=== PATIENT | male | born 1945 | race Caucasian/White ===

== ENCOUNTER 2023-12-18 10:18 | Day surgery (SDC) | payer MEDICARE, SELFPAY ==
[2023-12-18] VITALS (14 sets, daily range): BP systolic 91–114; BP diastolic 60–87; BMI 30.6
[2023-12-18 10:36] LABS: Hematocrit 37.4 % (39.0-52.0); Hemoglobin 12.8 g/dL (13.0-18.0); Mean Corp Hgb Conc. 34.2 g/dL (33.0-37.0); Mean Corpuscular Hgb 29.3 pg (27.0-31.0); Mean Corpuscular Volume 85.6 fL (80.0-94.0); Mean Platelet Volume 9.3 fL (7.4-10.4); Platelet Count 225 10^3/uL (130-400); Red Blood Cell Count 4.37 10^6/uL (4.70-6.10); Red Cell Dist. Width 14.7 % (11.5-14.5); White Blood Cell Count 8.1 10^3/uL (4.8-10.8)
[2023-12-18 11:48] LABS: Glucose - Point of Care 141 mg/dl (70-99)
--- NOTE | 2023-12-18 15:33 | CM ---
Chart reviewed. Patient is independent of ADLS, lives alone in a 1st floor apartment, 10 ERIC around the one side and ramp around the back side, 0 DME. Patient is not current with VN, but has used [facility] in the past. Patient is interested in [facility].
Referral sent. Plan is for the patient to return home with VN. CM to follow
--- NOTE | 2023-12-18 16:30 | ITS.CL.PACE ---
Sawmill Worker - Pacemaker Implant
Pacemaker Implant
Procedure Report:
LEADLESS PACEMAKER IMPLANTATION
DATE: December 10, 2023
Primary Care Provider: Dr. Elena Valiente
Primary small products ii assembler: Dr. Ishmael Bobo
INDICATION:
Nonreversible symptomatic bradycardia due to symptomatic bradycardia-tachycardia syndrome with permanent atrial fibrillation and very difficult heart rates to control with medical therapy. Pacemaker implantation followed by AV noble ablation has
been requested.
service car operator: Dr Daniel Walters
PROCEDURE:
Sedation provided via the anesthesia department.
Femoral intravenous access is obtained. Right femoral venous access initially with an 8 Martiniquais sheath progressively dilated upwards to allow placement of the Medtronic Micra 27 Martiniquais introducer venous sheath.
The Medtronic Micra delivery system (deflectable catheter with Micra device) was then introduced via the introducer/sheath into the RA. The sheath was then withdrawn to the level of the IVC. Using multiple fluoroscopic views, the delivery system was
then guided across the TV into the RV. A mid septal location was targeted. Angiogram in both SALAS (SALAS space sign present) and CORTEZ view confirmed septal location and the device was deployed. Testing demonstrated adequate and stable parameters. Pull
and hold test was successful and repeat testing demonstrated stable parameters. The tether was removed and repeat testing demonstrated stable parameters. The introducer / sheath were removed.
Figure of 8 stitch was used to close the venous access sites.
DEVICE:
Medtronic MICRA VR system [id number], SN: [id number]
Capture threshold: 0.88 V @0.4 ms
R wave sensing 5 mV
Pacing impedance: 670 ohms
Isaac pacing mode: VVIR 60 - 130 ppm
COMPLICATIONS: None
SUMMARY / RECOMMENDATIONS:
Implantation of leadless pacing system
If he demonstrates stable normal function of his newly placed pacemaker, he will return for AV noble ablation
[2023-12-18 18:23] LABS: Glucose - Point of Care 222 mg/dl (70-99)
[2023-12-18] MEDS: BUMEX 0.5 MG PO (19:08)
[2023-12-18] MEDS: NOVOLOG FLEXPEN-MODERATE RESISTANCE 3 UNITS SC (19:09)
[2023-12-18] MEDS: LIPITOR 20 MG PO (19:14)
[2023-12-18] MEDS: TOPROL XL 12.5 MG PO (20:09)
[2023-12-18 21:36] LABS: Glucose - Point of Care 438 mg/dl (70-99)
[2023-12-18 21:36] LABS: Glucose - Point of Care 456 mg/dl (70-99)
[2023-12-18 22:22] LABS: Glucose 425 mg/dl (70-99)
[2023-12-18] MEDS: NOVOLOG FLEXPEN 11 UNITS SC (22:54)
[2023-12-18] MEDS: DESYREL 100 MG PO (23:00)
[2023-12-19 00:58] LABS: Glucose - Point of Care 286 mg/dl (70-99)
--- NOTE | 2023-12-19 01:36 | PTCARENOTE ---
Pt. remains Afib on the monitor, rate low 100's-120's (Toprol given) other VSS. Bedrest ended at beginning of shift, pt. has since been OOB frequently to use BR and sit in chair. Right groin site intact with small amount old drainage (no new
growth), no S&S hematoma, pedal pulses palpable. No complaints chest pain/discomfort. HS blood sugar 456 by accucheck with venous result of 425 (asymptomatic). CHRISTIAN Mora, notified, order for Novalog 11 units x 1 obtained and
administered, 2 hour recheck 286. Pt. currently sleeping.
[2023-12-19 03:28] VITALS: BP 110/86
[2023-12-19 04:08] LABS: Hematocrit 36.6 % (39.0-52.0); Hemoglobin 12.2 g/dL (13.0-18.0); Mean Corp Hgb Conc. 33.3 g/dL (33.0-37.0); Mean Corpuscular Hgb 28.8 pg (27.0-31.0); Mean Corpuscular Volume 86.3 fL (80.0-94.0); Mean Platelet Volume 9.5 fL (7.4-10.4); Platelet Count 215 10^3/uL (130-400); Red Blood Cell Count 4.24 10^6/uL (4.70-6.10); Red Cell Dist. Width 14.7 % (11.5-14.5); White Blood Cell Count 6.7 10^3/uL (4.8-10.8)
[2023-12-19 04:23] VITALS: BMI 31.3
[2023-12-19 04:29] LABS: Blood Urea Nitrogen 43 mg/dl (9-20); Calcium 9.5 mg/dl (8.4-10.2); Carbon Dioxide 27 mmol/L (22-30); Chloride 95 mmol/L (98-107); Estimated Creatinine Clearance 54 ml/min; Glucose 201 mg/dl (70-99); Magnesium 2.1 mg/dl (1.6-2.3); Sodium 133 mmol/L (135-145); eGFR > 60.00
[2023-12-19 07:29] VITALS: BP 116/100
[2023-12-19 07:30] VITALS: BP 115/81
[2023-12-19 08:03] LABS: Glucose - Point of Care 171 mg/dl (70-99)
[2023-12-19] MEDS: NOVOLOG FLEXPEN-MODERATE RESISTANCE 1 UNITS SC (08:03)
[2023-12-19] MEDS: TOPROL XL 25 MG PO (08:08)
[2023-12-19] MEDS: GLUCOTROL 5 MG PO (08:08)
[2023-12-19] MEDS: PROTONIX 40 MG PO (08:08)
[2023-12-19 08:19] LABS: Glycohemoglobin (HgbA1c) 9.5 % (4.0-5.6)
--- NOTE | 2023-12-19 08:56 | W.PN.CARDCBS ---
Addendum entered and electronically signed by Landen Treadwell DO 12/19/23 12:03:
I saw and examined the patient.
The Anvil Worker's note was reviewed and I agree with the note.
Comment:
Patient seen and examined; no acute events; resting comfortably. No cp, sob, palpitations, lh, dizziness, groin pain, or weakness.
NAD<AOx3
S1, S2, irreg irreg, no m/r/g
CTAB, non labored
SNTND bsx4
R fem site c/d/i no HT, soft
BL LE no edema, warm
Persistent (likely permanent) AF s/p micra leadless symptomatic bradycardia, tachybrady syndrome
Increase BB as tolerated (25 mg BID Toprol XL, improved HR)
DC instructions and follow-up provided
Stable for DC
Original Note:
Today's Communication / Plan
-
Titrate metoprolol, monitor HR
home this afternoon
Impression / Plan
-
PCP: Elena Valiente DO
CDY: Ishmael Bobo MD
Impression:
Persistent Afib
Prior PVI 01/24/22
SERGO thrombus 11/13 and 12/11
post 24mm SERGO Watchman device insertion 10/01/22
Ambulatory dysfunction
HTN
HLD
DM2
Chronic diastolic HFpEF
COPD/Emphysema
Peripheral neuropathy
GERD
Former smoker
Plan:
post MICRA leadless pacemaker implant 12/18/23
groin stable
tele Afib with RVR HR 100-130's
f/u Echo no effusion
Will titrate metoprolol xl to 25mg bid, may need higher doses
Plan for return for AVN ablation in December
Activity restrictions reviewed
f/u dca 2-4 weeks
continue cardiac care with Dr. Bobo
home today if HR improved with increased BB
Progress Note - Cutting Inspector
Subjective
Date of Service: December 19, 2023
no cp, sob
Objective
Labs:
12/19/23 03:50
12/19/23 03:50
Labs
Hgb 12.2 g/dL (13.0-18.0) L 12/19/23 03:50
Hct 36.6 % (39.0-52.0) L 12/19/23 03:50
Plt Count 215 10^3/uL (130-400) 12/19/23 03:50
Sodium 133 mmol/L (135-145) L 12/19/23 03:50
Potassium 4.0 mmol/L (3.5-5.1) 12/19/23 03:50
BUN 43 mg/dl (9-20) H 12/19/23 03:50
Creatinine 1.2 mg/dL (0.7-1.3) 12/19/23 03:50
Glucose 201 mg/dl (70-99) H 12/19/23 03:50
Vital Signs and I&O:
Vital Signs
Temp Pulse Resp BP Pulse Ox
98.4 F 119 18 115/81 94
12/19/23 07:01 12/19/23 07:30 12/19/23 07:01 12/19/23 07:30 12/19/23 07:01
Vital Signs
Temp Pulse Resp BP Pulse Ox
98.4 F 119 18 115/81 94
12/19/23 07:01 12/19/23 07:30 12/19/23 07:01 12/19/23 07:30 12/19/23 07:01
Intake & Output
12/17/23 12/18/23 12/19/23 12/20/23
06:59 06:59 06:59 06:59
Intake Total 480 / 480
Balance 480 / 480
Physical Exam
Physical Exam
NAD<AOx3
S1, S2, irreg irreg
CTAB, non labored
SNTND bsx4
R fem site c/d/i no HT, soft
[2023-12-19] MEDS: BUMEX 0.5 MG PO (09:00)
--- NOTE | 2023-12-19 09:36 | PTCARENOTE ---
Assumed care of pt from night RN. Pt received awake and alert, Ox3. VSs, CM shows AF 100's, POX 96% on RA. Right groin dsg remains CDI with good CMS throughout limb. He denies any pain or discomfort. For possible D/C today.
--- NOTE | 2023-12-19 10:29 | CM ---
Chart reviewed. Patient is independent of ADLS, lives alone in a 1 STH, 10 ERCI through the front and a ramp in the back. Referral sent and accepted to [facility]. Plan is for the patient to return home with [facility].
[2023-12-19 11:09] VITALS: BP 106/77
--- NOTE | 2023-12-19 12:07 | W.DS.TRANS ---
DC Summary - Ordained Minister
-
Discharge Instructions:
Sleep Apnea Risk Intermediate
Discharge Diagnosis/Procedures MICRA Pacemaker placement
Diet Low Cholesterol,Diabetic, Carb Controlled
Driving Restrictions No driving for 24 hours
Instructions:
Stand-Alone Forms: DC Instructions- Cath/EP Lab
Changes to Home Medications: Yes
Discharge Medications:
DC Medications w/original date entered in [facility]
atorvastatin 20 mg tablet 20 mg PO DAILY High cholesterol 11/22/21
bumetanide 0.5 mg tablet 0.5 mg PO BID Fluid retention/Swelling 11/22/21
cholecalciferol (vitamin D3) 50 mcg (2,000 unit) tablet 2,000 units PO DAILY Supplement 11/22/21
dulaglutide 0.75 mg/0.5 mL subcutaneous pen injector (Trulicity) 0.75 mg SC WE Diabetes 11/22/21
folic acid 1 mg tablet 1 mg PO DAILY Supplement 11/22/21
glipizide 5 mg tablet 5 mg PO DAILY Diabetes 11/22/21
montelukast 10 mg tablet 10 mg PO HS ASTHMA 11/22/21
metolazone 2.5 mg tablet 2.5 mg PO DAILY 12/18/23
omeprazole 40 mg capsule,delayed release 40 mg PO DAILY 12/18/23
trazodone 100 mg tablet 100 mg PO HS 12/18/23
metoprolol succinate 25 mg tablet,extended release 24 hr 25 mg PO BID #60 tabs 12/19/23
Home Medication Changes
increased metoprolol to 25mg bid
Pending Results: No
[2023-12-19 12:12] LABS: Glucose - Point of Care 486 mg/dl (70-99)
[2023-12-19 12:58] LABS: Glucose 366 mg/dl (70-99)
[2023-12-19] MEDS: NOVOLOG FLEXPEN-MODERATE RESISTANCE 11 UNITS SC (13:02)
[2023-12-19] MEDS: PREVNAR 20 0.5 ML IM (13:53)
--- NOTE | 2023-12-19 14:20 | PTCARENOTE ---
All D/C info given to pt, all questions answered. Prevenar conjugate administered as per NOV. Pt treated for elevated BS with SS as ordered, but left before 2hr post was done.
== END 2023-12-19 14:00 | disposition home or self-care (01) ==
LOC: CATH 10:18
PROVIDERS: Nurse Practitioner Adult Health; ATTENDING PHYSICIAN Internal Medicine Cardiovascular Disease; FAMILY PHYSICIAN Family Medicine; OTHER PHYSICIAN Internal Medicine Cardiovascular Disease
DX: I49.5 Sick sinus syndrome (principal); I48.21 Permanent atrial fibrillation; Z00.6 Encounter for examination for normal comparison and control in clinical research program; I10 Essential (primary) hypertension; I50.32 Chronic diastolic (congestive) heart failure; I11.0 Hypertensive heart disease with heart failure; E78.5 Hyperlipidemia, unspecified; E11.9 Type 2 diabetes mellitus without complications; J44.9 Chronic obstructive pulmonary disease, unspecified; K21.9 Gastro-esophageal reflux disease without esophagitis; Z87.891 Personal history of nicotine dependence; G62.9 Polyneuropathy, unspecified; I89.0 Lymphedema, not elsewhere classified
CPT/HCPCS: 93308; 33274; 80048; 82947; 82962; 83036; 83735; 85027; 90677; 93005; 93321; 93325; C1769; C1786; C1894; G0009; Q9967

== ENCOUNTER 2024-01-05 10:14 | Day surgery (SDC) | payer MEDICARE, SELFPAY ==
[2024-01-05] VITALS (32 sets, daily range): BP systolic 88–119; BP diastolic 44–73; BMI 22.6
[2024-01-05 11:03] LABS: Glucose - Point of Care 92 mg/dl (70-99)
--- NOTE | 2024-01-05 14:04 | ITS.CL.ABL ---
Boat Officer - Ablation
Ablation
Procedure Report:
ELECTROPHYSIOLOGIC EVALUATION AND POSSIBLE ABLATION
Date of procedure: 01/05/24
Primary Care Provider: Dr Elena Valiente
Primary tie mill operator: Dr Ishmael Bobo
INDICATION: Tachycardia-bradycardia syndrome uncontrolled with medical therapy, prior leadless permanent pacemaker implantation
'TIME-OUT': called and confirmed.
SEDATION/ANESTHESIA:
PROCEDURE:
Ultrasound Guidance performed by tx was utilized for femoral venous Vascular Access b/l.
The Micra VR was interrogated and reprogrammed from VVIR 60-130 to VVI @ 40 ppm.
After assuring good capture parameters, a deflectable-tip
mapping/ablation catheter was advanced to the medial tricuspid annulus region of the right atrium where a HIS potential was identified. The catheter was slightly withdrawn from this location to a site more proximal on the right atrial septum, about
senior living between the HIS recording position and that of the coronary sinus os. At this location, a small HIS potential was evident along with large amplitude atrial deflections and a relatively small ventricular electrogram. Radiofrequency energy
was applied at this site using a temperature-controlled system resulted in an accelerated junctional rhythm followed by deceleration and heart block.
The Micra VR was interrogated and found to have stable function compared to the pre-ablation findings. Additionally there is no change in the fluoroscopic appearance of the device.
The pacemaker was reprogrammed to VVIR 70�130
COMPLICATIONS: None
SUMMARY:
Ultrasound guided vascular access.
Interrogation and reprograming of Micra VR single-chamber leadless pacemaker
Successful mapping and ablation of the AV node
RECOMMENDATIONS:
Stop amiodarone
Observe overnight and consideration for discharge to home tomorrow
Copy:
Dr Elena Valiente
Dr Ishmael Bobo
[2024-01-05 17:06] LABS: Glucose - Point of Care 151 mg/dl (70-99)
[2024-01-05] MEDS: BUMEX 0.5 MG PO (18:41)
--- NOTE | 2024-01-05 19:30 | PTCARENOTE ---
Received pt from lab aide recovery. Suzan gomez c/d/i w/ positive pulse. AOx3. Offers no c/o at this time. Oriented pt to room. Currently in bed; call juvencio w/in reach.
[2024-01-05] MEDS: PROTONIX 40 MG PO (21:24)
[2024-01-05] MEDS: SINGULAIR 10 MG PO (21:24)
[2024-01-05] MEDS: TOPROL XL 12.5 MG PO (21:24)
[2024-01-05] MEDS: DESYREL 100 MG PO (22:57)
[2024-01-06 03:05] VITALS: BP 130/66
[2024-01-06 03:40] LABS: Hematocrit 39.3 % (39.0-52.0); Hemoglobin 12.8 g/dL (13.0-18.0); Mean Corp Hgb Conc. 32.6 g/dL (33.0-37.0); Mean Corpuscular Hgb 29.2 pg (27.0-31.0); Mean Corpuscular Volume 89.5 fL (80.0-94.0); Mean Platelet Volume 9.5 fL (7.4-10.4); Platelet Count 210 10^3/uL (130-400); Red Blood Cell Count 4.39 10^6/uL (4.70-6.10); Red Cell Dist. Width 14.8 % (11.5-14.5); White Blood Cell Count 8.6 10^3/uL (4.8-10.8)
[2024-01-06 03:54] VITALS: BMI 30.4
[2024-01-06 04:11] LABS: Blood Urea Nitrogen 36 mg/dl (9-20); Calcium 9.7 mg/dl (8.4-10.2); Carbon Dioxide 30 mmol/L (22-30); Chloride 99 mmol/L (98-107); Estimated Creatinine Clearance 51 ml/min; Glucose 113 mg/dl (70-99); Potassium 3.7 mmol/L (3.5-5.1); Sodium 139 mmol/L (135-145); eGFR 55.53
[2024-01-06 06:40] VITALS: BP 101/58
--- NOTE | 2024-01-06 08:11 | W.PN.CARDCBS ---
Today's Communication / Plan
-
post AVN ablation
stable for d/c home
Impression / Plan
-
PCP: Elena Valiente DO
CDY: Ishmael Bobo MD
Impression:
Persistent Afib
Prior PVI 01/24/22
SERGO thrombus 11/13 and 12/11
post 24mm SERGO Watchman device insertion 10/01/22
MICRA leadless PPM 12/18/23
Ambulatory dysfunction
HTN
HLD
DM2
Chronic diastolic HFpEF
COPD/Emphysema
Peripheral neuropathy
GERD
Former smoker
Plan:
post AV node ablation 01/05/24
groin stable
tele Vpaced
Will stop Amiodarone, continue metoprolol 12.5 bid
Activity restrictions reviewed
He was admitted as inpatient level of care due to his increased risk profile
f/u Dr. Bobo in 1 mo
home today
Progress Note - Warehouse Man
Subjective
Date of Service: January 06, 2024
no cp, sob
Objective
Labs:
01/06/24 03:26
01/06/24 03:26
Labs
Hgb 12.8 g/dL (13.0-18.0) L 01/06/24 03:26
Hct 39.3 % (39.0-52.0) 01/06/24 03:26
Plt Count 210 10^3/uL (130-400) 01/06/24 03:26
Sodium 139 mmol/L (135-145) 01/06/24 03:26
Potassium 3.7 mmol/L (3.5-5.1) 01/06/24 03:26
BUN 36 mg/dl (9-20) H 01/06/24 03:26
Creatinine 1.3 mg/dL (0.7-1.3) 01/06/24 03:26
Glucose 113 mg/dl (70-99) H 01/06/24 03:26
Vital Signs and I&O:
Vital Signs
Temp Pulse Resp BP Pulse Ox
98.4 F 70 16 101/58 95
01/06/24 06:38 01/06/24 07:00 01/06/24 06:38 01/06/24 06:40 01/06/24 06:38
Vital Signs
Temp Pulse Resp BP Pulse Ox
98.4 F 70 16 101/58 95
01/06/24 06:38 01/06/24 07:00 01/06/24 06:38 01/06/24 06:40 01/06/24 06:38
Intake & Output
01/04/24 01/05/24 01/06/24 01/07/24
06:59 06:59 06:59 06:59
Intake Total 1100 / 1100
Balance 1100 / 1100
Physical Exam
Physical Exam
NAD< AOx3
S1, S2, RRR
CTAB, non labored, no wheeze
SNTND BSx4
R fem site c/d/i no HT, soft
[2024-01-06] MEDS: LOW STRENGTH ASPIRIN 81 MG PO (08:24)
[2024-01-06] MEDS: GLUCOTROL 5 MG PO (08:24)
[2024-01-06] MEDS: LIPITOR 20 MG PO (08:25)
[2024-01-06] MEDS: BUMEX 0.5 MG PO (08:26)
[2024-01-06] MEDS: ZAROXOLYN 2.5 MG PO (08:26)
[2024-01-06] MEDS: TOPROL XL 12.5 MG PO (08:26)
[2024-01-06 09:16] VITALS: BMI 30.7
--- NOTE | 2024-01-06 10:09 | W.PN.CARDCBS ---
Today's Communication / Plan
-
Stable for discharge to home
Impression / Plan
-
Primary care provider: Elena Valiente DO
Referring audit clerks supervisor: Ishmael Bobo MD
Impression:
Persistent Afib
Prior PVI 01/24/22
SERGO thrombus 11/13 and 12/11
post 24mm SERGO Watchman device insertion 10/01/22
MICRA leadless PPM 12/18/23
Ambulatory dysfunction
HTN
HLD
DM2
Chronic diastolic HFpEF
COPD/Emphysema
Peripheral neuropathy
GERD
Former smoker
Recommendation:
He underwent successful AV noble ablation in January 05, 2024. We have therefore stopped amiodarone which was previously needed for attempts at rate control.
There is normal function of the leadless pacemaker pre and post ablation.
He is stable for discharge to home today. All of his questions have been answered. He will follow-up with his primary audit clerks supervisor Dr. Bobo in approximately 1 month.
Total discharge time 35 minutes
Progress Note - Dry Ice Machine Operator
Subjective
Date of Service: January 06, 2024
He tells me he feels well. He is anxious to go home. No chest pain shortness of breath palpitations or dizziness.
Objective
Labs:
01/06/24 03:26
01/06/24 03:26
Labs
Hgb 12.8 g/dL (13.0-18.0) L 01/06/24 03:26
Hct 39.3 % (39.0-52.0) 01/06/24 03:26
Plt Count 210 10^3/uL (130-400) 01/06/24 03:26
Sodium 139 mmol/L (135-145) 01/06/24 03:26
Potassium 3.7 mmol/L (3.5-5.1) 01/06/24 03:26
BUN 36 mg/dl (9-20) H 01/06/24 03:26
Creatinine 1.3 mg/dL (0.7-1.3) 01/06/24 03:26
Glucose 113 mg/dl (70-99) H 01/06/24 03:26
Vital Signs and I&O:
Vital Signs
Temp Pulse Resp BP Pulse Ox
98.4 F 70 16 101/58 95
01/06/24 06:38 01/06/24 07:00 01/06/24 06:38 01/06/24 06:40 01/06/24 06:38
Vital Signs
Temp Pulse Resp BP Pulse Ox
98.4 F 70 16 101/58 95
01/06/24 06:38 01/06/24 07:00 01/06/24 06:38 01/06/24 06:40 01/06/24 06:38
Intake & Output
01/04/24 01/05/24 01/06/24 01/07/24
06:59 06:59 06:59 06:59
Intake Total 1100 / 1100 1080 / 1080
Balance 1100 / 1100 1080 / 1080
Physical Exam
Physical Exam
Well-appearing elderly gentleman no acute distress.
Heart is regular normal S1 and S2 no S3 no S4 is grade 1/6 apical holosystolic murmur no rubs PMI is normally placed
Abdomen soft nontender nondistended with normoactive bowel sounds
Extremities show no clubbing or cyanosis, there is trace pretibial edema bilaterally
--- NOTE | 2024-01-06 10:19 | CM ---
Reviewed chart. Met with Mr. Ulrich to review discharge plans. He states prior to admission he resides alone in an apartment with ten steps to enter. He states prior to admission he was independent with ambulation and adls. He states he does not
have any DME in the home. He states he has a prescription plan and uses [facility]. He states money is getting tight and we reviewed PACE/PACE-net. with him. Gave him the application. Medical work-up in progress. The discharge plan is to
return home when medically stable.
--- NOTE | 2024-01-06 10:50 | W.DS.TRANS ---
DC Summary - Unclaimed Property Officer
-
Discharge Instructions:
Sleep Apnea Risk Intermediate
Discharge Diagnosis/Procedures AV Node ablation
Diet Low Cholesterol
Driving Restrictions No driving for 24 hours
Instructions:
Stand-Alone Forms: DC Instructions- Cath/EP Lab
Changes to Home Medications: Yes
Discharge Medications:
DC Medications w/original date entered in [facility]
atorvastatin 20 mg tablet 20 mg PO DAILY High cholesterol 11/22/21
bumetanide 0.5 mg tablet 0.5 mg PO BID Fluid retention/Swelling 11/22/21
cholecalciferol (vitamin D3) 50 mcg (2,000 unit) tablet 2,000 units PO DAILY Supplement 11/22/21
dulaglutide 0.75 mg/0.5 mL subcutaneous pen injector (Trulicity) 0.75 mg SC WE Diabetes 11/22/21
folic acid 1 mg tablet 1 mg PO DAILY Supplement 11/22/21
glipizide 5 mg tablet 5 mg PO DAILY Diabetes 11/22/21
montelukast 10 mg tablet 10 mg PO HS ASTHMA 11/22/21
metolazone 2.5 mg tablet 2.5 mg PO DAILY 12/18/23
omeprazole 40 mg capsule,delayed release 40 mg PO HS 12/18/23
trazodone 100 mg tablet 100 mg PO HS 12/18/23
aspirin 81 mg chewable tablet 81 mg PO DAILY 01/05/24
metoprolol succinate 25 mg tablet,extended release 24 hr 12.5 mg PO BID 01/05/24
Home Medication Changes
stopped amiodarone
Pending Results: No
== END 2024-01-06 11:00 | disposition home or self-care (01) ==
LOC: CATH 10:14
PROVIDERS: Nurse Practitioner; ATTENDING PHYSICIAN Internal Medicine Cardiovascular Disease; FAMILY PHYSICIAN Family Medicine
DX: I48.19 Other persistent atrial fibrillation (principal); I49.5 Sick sinus syndrome; E78.5 Hyperlipidemia, unspecified; E11.9 Type 2 diabetes mellitus without complications; I11.0 Hypertensive heart disease with heart failure; I50.32 Chronic diastolic (congestive) heart failure; J44.9 Chronic obstructive pulmonary disease, unspecified; E11.42 Type 2 diabetes mellitus with diabetic polyneuropathy; K21.9 Gastro-esophageal reflux disease without esophagitis; R26.2 Difficulty in walking, not elsewhere classified; Z86.718 Personal history of other venous thrombosis and embolism; Z87.891 Personal history of nicotine dependence; Z79.82 Long term (current) use of aspirin
CPT/HCPCS: C1733; C1894; 76937; 80048; 82962; 83735; 85027; 93005; 93650